=== PATIENT | male | born 1995 ===

== ENCOUNTER 2021-11-05 14:36 | Emergency (ER) | payer SELFPAY ==
[~2021-11-05] VITALS: Ht 167.6 cm; Wt 57.2 kg
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
--- NOTE | 2021-11-05 15:40 | NUR ---
Pt's father has arrived at ER. Father willing to have pt and pt's son released to him.
--- NOTE | 2021-11-05 16:16 | NUR ---
1st contact with patient: patient is AOx4, [email or web address]. Patient is calm and cooperative, NAD, for disposition.
--- NOTE | 2021-11-05 16:24 | NUR ---
Patient discharged to home in stable condition and brisk steady gait. Written and verbal after care instructions given to patient and family. Patient and family verbalized understanding and compliance of instructions. Stressed follow up with primary doctor or return to ER for worsening s/s. @ [employer] officers left with patient and family members.
== END 2021-11-05 16:26 | disposition home or self-care (01) ==
LOC: ER 14:36
DX: T42.4X1A Poisoning by benzodiazepines, accidental (unintentional), initial encounter (principal); R40.0 Somnolence; Y92.017 Garden or yard in single-family (private) house as the place of occurrence of the external cause; Z88.0 Allergy status to penicillin
CPT/HCPCS: A4663